=== PATIENT | female | born 1995 | race Caucasian/White ===

== ENCOUNTER 2019-04-13 07:40 | Day surgery (SDC) | payer OTHER ==
[2019-04-13] MEDS ORDERED: ZOFRAN4 MG PO (10:23)
[2019-04-13] MEDS ORDERED: ZANTAC300 MG PO (10:23)
[2019-04-13] MEDS ORDERED: PANTOPRAZOLE SO40 MG PO (10:23)
== END 2019-04-13 11:35 | disposition home or self-care (01) ==
LOC: AMB-ENDOS 07:40
DX: K29.60 Other gastritis without bleeding (principal)